=== PATIENT | male | born 1960 | race Caucasian/White ===

== ENCOUNTER → 2016-05-30 | Outpatient (CLI) | payer BC ==
[2016-05-30 13:51] LABS: CHLORIDE,CL 100 mmol/L (98-110); SODIUM,NA 136 mmol/L (136-146)
== END ==
LOC: MW.CHIM 12:52
PROVIDERS: ATTEND Internal Medicine
DX: Z00.00 Encounter for general adult medical examination without abnormal findings (principal); F43.10 Post-traumatic stress disorder, unspecified
CPT/HCPCS: 36415; 80053; 80061; 83036; 84439; 84443; 85025; G0103

== ENCOUNTER → 2016-06-26 | Outpatient (CLI) | payer BC | LOC: MW.CHIM 16:02 | PROVIDERS: ATTEND Internal Medicine | DX: N41.9 Inflammatory disease of prostate, unspecified (principal) | CPT/HCPCS: 36415; G0103 ==

== ENCOUNTER 2024-03-14 09:01 | Day surgery (SDC) | payer BC ==
[2024-03-14] MEDS: Lactated Ringers 1,000 ML IV SCH (09:30)
[2024-03-14] MEDS ORDERED: Lidocaine 2% 5 ML SDV ONE (09:47)
[2024-03-14] MEDS ORDERED: propofoL 500 MG/50 ML 50 ML ONE (09:47)
[2024-03-14 11:49] VITALS: BP 127/84; PULSE 50
== END 2024-03-14 11:55 | disposition home or self-care (01) ==
LOC: MW.SDS 09:01
PROVIDERS: ATTEND Surgery
DX: Z12.11 Encounter for screening for malignant neoplasm of colon (principal); I10 Essential (primary) hypertension; E78.00 Pure hypercholesterolemia, unspecified; J45.909 Unspecified asthma, uncomplicated; Z87.891 Personal history of nicotine dependence; Z79.899 Other long term (current) drug therapy
CPT/HCPCS: 45378; J2704; J7120; J3490